=== PATIENT | female | born 1960 | race Caucasian/White ===

== ENCOUNTER 2022-11-14 16:37 | Inpatient (IN) | payer OTHER ==
[~2022-11-14 16:37] MED LIST: Iopamidol-370 76% 500 ML MDV (1 ML CHARGE) ONE
[2022-11-14] MEDS ORDERED: Boostrix 0.5 ML (Tdap) VIAL (>/=7 yrs of age) ONE (16:55)
[2022-11-14] MEDS ORDERED: CEFAZOLIN 2 GM VIAL ONE (16:59)
[2022-11-14] MEDS ORDERED: fentaNYL 50 mcg/mL 1 mL Vial ONE (16:59)
[2022-11-14] MEDS ORDERED: Ondansetron PF 4 MG/2 ML Vial ONE (16:59)
[2022-11-14 17:02] LABS: #Basophils 0.1 thou/uL (0.0-0.2); #Eosinphils 0.1 thou/uL (0.0-0.7); #Lymphocytes 2.5 thou/uL (1.20-3.40); #Monocytes 0.4 thou/uL (0.11-0.59); #Neutrophils 3.2 thou/uL (1.40-6.50); %Eosinophils 1.8 % (0.0-10.0); %Lymphocytes 39.6 % (21.0-51.0); %Neutrophils 51.6 % (42.0-75.0); Mean Corpuscular HGB CONC 35.5 g/dL (32.0-36.0); Mean Corpuscular Hemoglobin 34.8 pg (27.0-31.0); Mean Corpuscular Volume 98.2 fl (78.0-98.0); Mean Platelet Volume 9.6 fL (7.4-10.4); Platelet Count 189 10x3/uL (130-400); RBC Distribution Width 12.1 % (11.5-14.5); Red Blood Cell (RBC) Count 3.74 mill/uL (4.20-5.40); White Blood Cell (WBC) Count 6.2 10x3/uL (4.8-10.8)
[2022-11-14 17:17] LABS: Actual Bicarbonate (HCO3v) 19.7 mEq/L (22-28); Base Excess -4.3 mEq/L (-2.0 to +3.0); Calcium, Ionized (venous) 1.09 mmol/L (1.16-1.32); Chloride (VBG) 106 mmol/L (98-106); Hematocrit-VBG 40 % (36.0-47.0); Hemoglobin (Hb) 13.7 g/dL (11.7-16.0); Potassium (VBG) 3.73 mmol/L (3.70-5.30); Sodium 141.8 mmol/L (133-146); pH (venous) 7.391 (7.32-7.43)
[2022-11-14 17:23] LABS: ALT (SGPT) 24 U/L (8-55); AST (SGOT) 34 U/L (5-34); Alkaline Phosphatase 65 U/L (40-110); Anion Gap 17 mmol/L (10-20); BUN (Urea Nitrogen) 10 mg/dL (9.8-20.1); Bilirubin, Total 0.2 mg/dL (0.2-1.2); Calc. Creatinine Clearance 0 mL/min (70-130); Calcium 8.8 mg/dL (7.8-10.44); Carbon Dioxide 20 mmol/L (23-31); Chloride 109 mmol/L (98-107); Estimated GFR 94; Globulin 2.6 g/dL (2.4-3.5); Glucose 105 mg/dL (80-115); Potassium 3.6 mmol/L (3.5-5.1); Protein, Total 6.6 g/dL (5.8-8.1); Sodium 142 mmol/L (136-145)
[2022-11-14] MEDS ORDERED: Morphine 4 MG/ML VIAL ONE ×2 (17:45→19:19)
[2022-11-14] MEDS ORDERED: Propofol 1,000 MG/100 ML VIAL IV ONE (19:37)
[2022-11-14] MEDS ORDERED: PROPOFOL 20 ML ONE (19:39)
[2022-11-14 20:06] LABS: Lactic Acid 2.3 mmol/L (0.5-2.2)
[2022-11-14] MEDS ORDERED: Dextrose 5% in Water 1,000 ML IV PRN (20:37)
[2022-11-14] MEDS ORDERED: Ondansetron PF 4 MG/2 ML Vial IVP PRN (20:37)
[2022-11-14] MEDS ORDERED: Morphine 4 MG/ML VIAL SLOW IVP PRN (20:37)
[2022-11-14] MEDS ORDERED: Dextrose 50% Abboject 50 ML SYRINGE SLOW IVP PRN (20:37)
[2022-11-14] MEDS ORDERED: hydrALAZINE 20 MG/ML VIAL SLOW IVP PRN (20:37)
[2022-11-14] MEDS ORDERED: Cyclobenzaprine 10 MG TAB PO PRN (20:41)
[2022-11-14] MEDS ORDERED: Ibuprofen 800 MG TAB PO PRN (20:41)
[2022-11-14] MEDS ORDERED: Sodium Chloride 0.9% 1,000 ML IV SCH (20:45)
[2022-11-14] MEDS: Gabapentin 300 MG CAP PO SCH (22:38)
[2022-11-14] MEDS: Senokot S 8.6-50 MG TAB PO SCH (22:38)
[2022-11-14] MEDS: traMADol HCl 50 MG TAB PO SCH (22:38)
[2022-11-14] MEDS: traMADol HCl 50 MG TAB PO PRN (22:43)
[2022-11-14] MEDS: Famotidine/PF 20 mg/2ml Vial SLOW IVP SCH (22:44)
[2022-11-14 22:48] VITALS: BMI 26.4
[2022-11-14] MEDS: CEFAZOLIN 2 GM in Sodium Chloride 0.9% 100 ML IVPB SCH (23:08)
[2022-11-14] MEDS: Acetaminophen 500 MG TAB PO SCH (23:08)
[2022-11-15] MEDS: traMADol HCl 50 MG TAB PO SCH ×5 (03:43→20:06)
[2022-11-15] MEDS: Acetaminophen 500 MG TAB PO SCH ×3 (05:40→17:23)
[2022-11-15] MEDS: traMADol HCl 50 MG TAB PO PRN ×2 (05:40→17:23)
[2022-11-15] MEDS ORDERED: CEFAZOLIN 2 GM in Sodium Chloride 0.9% 100 ML IVPB SCH (07:45)
[2022-11-15 07:52] LABS: #Lymphocytes 0.6 thou/uL (1.20-3.40); #Monocytes 0.5 thou/uL (0.11-0.59); #Neutrophils 3.8 thou/uL (1.40-6.50); %Basophils 0.6 % (0.0-1.0); %Eosinophils 0.6 % (0.0-10.0); %Monocytes 9.3 % (0.0-10.0); %Neutrophils 77.5 % (42.0-75.0); MDiff Complete? YES; Macrocytosis SLIGHT = 6-15 cells (100X) (0-5/hpf); Mean Corpuscular HGB CONC 31.9 g/dL (32.0-36.0); Mean Corpuscular Hemoglobin 31.6 pg (27.0-31.0); Mean Corpuscular Volume 99.2 fl (78.0-98.0); Mean Platelet Volume 9.8 fL (7.4-10.4); Platelet Count 95 10x3/uL (130-400); Platelet Morphology Comment Appears Decreased; Polychromasia SLIGHT = 2-3 cells (100X) (0-2/hpf); RBC Distribution Width 12.1 % (11.5-14.5); White Blood Cell (WBC) Count 4.9 10x3/uL (4.8-10.8)
[2022-11-15] MEDS: Gabapentin 300 MG CAP PO SCH ×4 (08:47→20:06)
[2022-11-15] MEDS: Famotidine/PF 20 mg/2ml Vial SLOW IVP SCH ×2 (08:48→20:06)
[2022-11-15 08:54] LABS: #Lymphocytes 1.3 thou/uL (1.20-3.40); #Monocytes 0.7 thou/uL (0.11-0.59); #Neutrophils 7.8 thou/uL (1.40-6.50); %Basophils 0.5 % (0.0-1.0); %Eosinophils 0.2 % (0.0-10.0); %Lymphocytes 13.2 % (21.0-51.0); %Monocytes 7.4 % (0.0-10.0); %Neutrophils 78.8 % (42.0-75.0); Hemoglobin 12.5 g/dL (12.0-16.0); Mean Corpuscular HGB CONC 33.5 g/dL (32.0-36.0); Mean Corpuscular Hemoglobin 32.8 pg (27.0-31.0); Mean Corpuscular Volume 97.8 fl (78.0-98.0); Mean Platelet Volume 9.7 fL (7.4-10.4); Platelet Count 171 10x3/uL (130-400); RBC Distribution Width 12.2 % (11.5-14.5); White Blood Cell (WBC) Count 9.8 10x3/uL (4.8-10.8)
[2022-11-15] MEDS: Polyethylene Glycol 3350 17 GM Packet PO SCH (08:59)
[2022-11-15] MEDS: Senokot S 8.6-50 MG TAB PO SCH ×2 (08:59→20:06)
[2022-11-15] MEDS ORDERED: fentaNYL 50 mcg/mL 1 mL Vial ONE ×2 (09:23→13:58)
[2022-11-15] MEDS: CEFAZOLIN 2 GM in Sodium Chloride 0.9% 100 ML IVPB SCH ×2 (09:35→17:24)
[2022-11-15] MEDS ORDERED: Midazolam HCl 2 mg/2 ml Vial ONE (09:50)
[2022-11-15] MEDS ORDERED: Fentanyl 250 MCG/5 ML VIAL ONE (09:50)
[2022-11-15] MEDS ORDERED: Ondansetron PF 4 MG/2 ML Vial ONE (10:17)
[2022-11-15] MEDS ORDERED: PROPOFOL 200 MG/20 ML VIAL ONE (10:17)
[2022-11-15] MEDS ORDERED: Lidocaine 1% PF 5 ML VIAL ONE (10:17)
[2022-11-15] MEDS ORDERED: Dexamethasone 20 MG/5 ML VIAL ONE (10:17)
[2022-11-15] MEDS ORDERED: Rocuronium Bromide 10 MG/ML (10ML VIAL) ONE (10:17)
[2022-11-15] MEDS ORDERED: Promethazine HCl 25 MG/ML VIAL IM PRN (10:42)
[2022-11-15] MEDS ORDERED: Ondansetron HCl/PF 4 MG/2 ML Vial IVP PRN (10:42)
[2022-11-15] MEDS ORDERED: HYDROmorphone 2 MG/ML VIAL SLOW IVP PRN (10:42)
[2022-11-15] MEDS ORDERED: HYDROmorphone 2 MG/ML VIAL ONE (12:10)
[2022-11-15] MEDS ORDERED: SUGAMMADEX SODIUM 200 MG/2 ML VIAL ONE (12:25)
[2022-11-15] MEDS ORDERED: hydrALAZINE 20 MG/ML VIAL ONE (14:20)
[2022-11-15 17:20] LABS: Chloride 106 mmol/L (98-107); Potassium 3.9 mmol/L (3.5-5.1); Sodium 137 mmol/L (136-145)
[2022-11-15 17:21] LABS: Calcium 8.6 mg/dL (7.8-10.44); Glucose 144 mg/dL (80-115)
[2022-11-15 17:23] LABS: Anion Gap 15 mmol/L (10-20); Carbon Dioxide 20 mmol/L (23-31)
[2022-11-15 17:25] LABS: Calc. Creatinine Clearance 98 mL/min (70-130); Estimated GFR 99; Phosphorus 3.4 mg/dL (2.3-4.7)
[2022-11-15 17:26] LABS: BUN (Urea Nitrogen) 8 mg/dL (9.8-20.1)
[2022-11-15 17:27] LABS: Magnesium 1.9 mg/dL (1.6-2.6)
[2022-11-16] MEDS: Acetaminophen 500 MG TAB PO SCH ×2 (00:18→05:31)
[2022-11-16] MEDS: traMADol HCl 50 MG TAB PO SCH ×3 (01:44→15:33)
[2022-11-16] MEDS: CEFAZOLIN 2 GM in Sodium Chloride 0.9% 100 ML IVPB SCH ×2 (01:45→11:04)
[2022-11-16 06:32] LABS: #Lymphocytes 1.2 thou/uL (1.20-3.40); #Monocytes 0.8 thou/uL (0.11-0.59); #Neutrophils 5.7 thou/uL (1.40-6.50); %Basophils 0.6 % (0.0-1.0); %Eosinophils 0.3 % (0.0-10.0); %Monocytes 9.8 % (0.0-10.0); %Neutrophils 74.3 % (42.0-75.0); Hemoglobin 11.2 g/dL (12.0-16.0); Mean Corpuscular HGB CONC 32.8 g/dL (32.0-36.0); Mean Corpuscular Hemoglobin 32.2 pg (27.0-31.0); Mean Corpuscular Volume 98.2 fl (78.0-98.0); Mean Platelet Volume 10.7 fL (7.4-10.4); Platelet Count 158 10x3/uL (130-400); RBC Distribution Width 12.3 % (11.5-14.5); Red Blood Cell (RBC) Count 3.48 mill/uL (4.20-5.40); White Blood Cell (WBC) Count 7.7 10x3/uL (4.8-10.8)
[2022-11-16 06:51] LABS: Anion Gap 12 mmol/L (10-20); BUN (Urea Nitrogen) 7 mg/dL (9.8-20.1); Calc. Creatinine Clearance 103 mL/min (70-130); Calcium 7.9 mg/dL (7.8-10.44); Carbon Dioxide 24 mmol/L (23-31); Chloride 105 mmol/L (98-107); Estimated GFR 100; Glucose 103 mg/dL (80-115); Magnesium 1.8 mg/dL (1.6-2.6); Phosphorus 2.5 mg/dL (2.3-4.7); Potassium 3.3 mmol/L (3.5-5.1); Sodium 138 mmol/L (136-145)
[2022-11-16 07:28] VITALS: TEMP 98.1
[2022-11-16] MEDS: Gabapentin 300 MG CAP PO SCH ×2 (08:02→15:34)
[2022-11-16] MEDS: Famotidine/PF 20 mg/2ml Vial SLOW IVP SCH (08:02)
[2022-11-16] MEDS: Senokot S 8.6-50 MG TAB PO SCH (08:04)
[2022-11-16] MEDS: Polyethylene Glycol 3350 17 GM Packet PO SCH (08:15)
[2022-11-16] MEDS ORDERED: HYDROcodone/Acetaminophen 5/325 mg Tablet PO PRN (10:55)
[2022-11-16] MEDS ORDERED: Acetaminophen 325 MG TAB PO SCH (12:00)
[2022-11-16 16:40] VITALS: BP 141/87
== END 2022-11-16 17:38 | disposition home or self-care (01) | DRG 511 ==
LOC: ERS 16:37 → SURG A 20:37
PROVIDERS: ADMIT Surgery; ATTEND Surgery
PROC: 0PSJ04Z Reposition Left Radius with Internal Fixation Device, Open Approach (ICD-10-PCS; principal; 2022-11-14)
PROC: 0PSH04Z Reposition Right Radius with Internal Fixation Device, Open Approach (ICD-10-PCS; 2022-11-14)
PROC: 0PSL04Z Reposition Left Ulna with Internal Fixation Device, Open Approach (ICD-10-PCS; 2022-11-14)
PROC: 0PSK04Z Reposition Right Ulna with Internal Fixation Device, Open Approach (ICD-10-PCS; 2022-11-14)
DX: S52.502B Unspecified fracture of the lower end of left radius, initial encounter for open fracture type I or II (principal); S02.31XA Fracture of orbital floor, right side, initial encounter for closed fracture; S02.40EA Zygomatic fracture, right side, initial encounter for closed fracture; S52.202B Unspecified fracture of shaft of left ulna, initial encounter for open fracture type I or II; S52.91XA Unspecified fracture of right forearm, initial encounter for closed fracture; S52.201A Unspecified fracture of shaft of right ulna, initial encounter for closed fracture; S62.327A Displaced fracture of shaft of fifth metacarpal bone, left hand, initial encounter for closed fracture; S62.321A Displaced fracture of shaft of second metacarpal bone, left hand, initial encounter for closed fracture; C43.9 Malignant melanoma of skin, unspecified; Z90.49 Acquired absence of other specified parts of digestive tract; V49.40XA Driver injured in collision with unspecified motor vehicles in traffic accident, initial encounter; Z79.899 Other long term (current) drug therapy
CPT/HCPCS: 36415; 70450; 70486; 71045; 71260; 72125; 72170; 74177; 80048; 80053; 82805; 83605; 83735; 84100; 85025; 86850; 86900; 86901; 90715; C1713; G0390; J0360; J1100; J1170; J2250; J2270; J2405; J2704; J3010; J3490; J7050; Q9967; S0028